=== PATIENT | female | born 1985 | race Caucasian/White ===

== ENCOUNTER → 2016-09-14 | Outpatient (CLI) | payer BC ==
--- NOTE | 2016-09-16 12:34 | REP ---
Clinical: Trauma. Technique: AP, lateral, bilateral oblique views. Findings: There is a fracture at the base of the fifth metatarsal bone. No other fracture dislocation identified. Impression: Transverse fracture at the base of the fifth metatarsal bone. Signed by Roberto Rosario MD 09/16/2016 12:26 P
== END ==
LOC: M CLY 15:30
PROVIDERS: ATTEND Physician Assistant
DX: S92.354A Nondisplaced fracture of fifth metatarsal bone, right foot, initial encounter for closed fracture (principal); W19.XXXA Unspecified fall, initial encounter; X58.XXXA Exposure to other specified factors, initial encounter; Y93.9 Activity, unspecified; Y92.9 Unspecified place or not applicable; Y99.8 Other external cause status